=== PATIENT | male | born 1955 | race Caucasian/White ===

== ENCOUNTER 2020-08-17 02:57 | Emergency (ER) | payer MEDICARE, BC ==
[2020-08-17] MEDS ORDERED: Lidocaine 2% Viscous Solution 15 ML Cup ONE (03:38)
[2020-08-17] MEDS ORDERED: Lidocaine 2% Viscous Solution 15 ML Cup PO ONE (03:38)
--- NOTE | 2020-08-17 04:20 | EDM.PDOC ---
ED HPI GENERAL MEDICAL PROBLEM - General Chief Complaint: ENT Problem Stated Complaint: SEVERE NOSE BLEED Time Seen by Provider: 08/17/20 03:32 - History of Present Illness INITIAL COMMENTS - FREE TEXT/NARRATIVE: HISTORY AND PHYSICAL: History of present illness: This is a 65-year-old gentleman with a history significant for coronary artery disease status post bypass surgery last year and is currently on Eliquis and Plavix who presents ER today secondary to nosebleed. Patient reports that he had a nosebleed earlier this morning that resolved on its own however this evening he started having more bleeding that was continuous on unable to stop. Patient denies any recent fevers, shakes, chills, nausea, vomiting, diarrhea, dysuria, frequency, urgency, chest pain, shortness of breath. Patient reports easy bruising to his arms since has been started on the Eliquis and Plavix. Review of systems: As per history of present illness and below otherwise all systems reviewed and negative. Past medical history: As per history of present illness and as reviewed below otherwise noncontributory. Surgical history: As per history of present illness and as reviewed below otherwise noncontributory. Social history: No reported history of drug or alcohol abuse. Family history: As per history of present illness and as reviewed below otherwise noncontributory. Physical exam: This patient was seen and evaluated during the 2019 SARS-CoV-2 novel coronavirus pandemic period. Community viral transmission is ongoing at time of this encounter and the emergency department is operating under pandemic response procedures. Constitutional: Patient is oriented to person, place, and time. Appears well- developed and well-nourished. No distress. HEENT: Moist mucous membranes Head: Normocephalic and atraumatic Eyes: Right eye exhibits no discharge. Left eye exhibits no discharge. No scleral icterus Neck: Normal range of motion. No tracheal deviation present. Cardiovascular: Normal rate and regular rhythm. Pulmonary: Effort normal, no respiratory distress. Abdominal: No distention Musculoskeletal: Normal range of motion Neurologic: Alert and oriented to person, place and time. Skin: Clover, warm and dry. Psychiatric: Normal mood and affect. Behavior is normal. Judgment and thought content normal. Nursing note and vital signs have been reviewed Patient's ER physical exam is significant for bleeding coming out of his left naris. Nasal clamps were placed on the patient for approximate 15 minutes with continuous bleeding. Unable to visualize the source of bleeding so a nasal balloon was inserted. Diagnostics: CBC, CMP, PT PTT Therapeutics: Nasal balloon inserted and inflated with approximately 2 cc of air after injecting the left nares with 3 cc of viscous lidocaine. Assessment and plan: This is a 65-year-old gentleman who presents ER today secondary to persistent epistaxis of his left nares. Despite nasal clamps patient had persistent bleeding and I was unable to visualize the source. A nasal balloon was inserted into his left nares after infiltrating the nare with approximately 3 cc of viscous lidocaine. Patient tolerated the procedure well. Minimal bleeding has been identified out of the left nares from the actual balloon itself. Patient will be discharged home with instructions to return to the ER or see his primary care physician in 3 days for balloon removal. Reassessment at the time of disposition demonstrates that the patient is in no acute distress. The patient has remained stable throughout the entire ED visit and is without objective evidence for acute process requiring urgent intervention or hospitalization. The patient is stable for discharge, counseling is provided as documented above, discussed symptomatic treatment and specific conditions for return. I have spoken with the patient/caregiver and discussed todays findings, in addition to providing specific details for the plan of care. Questions are answered and there is agreement with the plan. Definitive disposition and diagnosis as appropriate pending reevaluation and review of above. - Related Data Allergies Allergy/AdvReac Type Severity Reaction Status Date / Time No Known Allergies Allergy Verified 08/17/20 03:18 Home Meds: Home Meds Apixaban [Eliquis] 5 mg PO 08/17/20 [History] Clopidogrel Bisulfate [Clopidogrel] 75 mg PO 08/17/20 [History] Metoprolol Tartrate 50 mg PO DAILY 08/17/20 [History] atorvaSTATin Calcium [Atorvastatin Calcium] 40 mg PO DAILY 08/17/20 [History] cephALEXin [Keflex] 500 mg PO BID #10 cap 08/17/20 [Rx] Past Medical History HEENT History: Reports: Hard of Hearing Cardiovascular History: Reports: Stents, Other (See Below) Other Cardiovascular History: stents x5 Gastrointestinal History: Reports: GERD - Past Surgical History HEENT Surgical History: Reports: None Cardiovascular Surgical History: Reports: Coronary Artery Bypass Social & Family History - Family History Family Medical History: No Pertinent Family History - Caffeine Use Caffeine Use: Reports: None - Recreational Drug Use Recreational Drug Use: No ED ROS GENERAL - Review of Systems Review Of Systems: See Below ED EXAM, GENERAL - Physical Exam Exam: See Below Course - Vital Signs Last Recorded V/S: Last Vital Signs Temp 97.4 F 08/17/20 03:15 Pulse 89 08/17/20 03:15 Resp 16 08/17/20 03:15 BP 181/106 H 08/17/20 03:15 Pulse Ox 93 L 08/17/20 03:15 - Orders/Labs/Meds Orders: Active Orders 24 hr Category Date Time Status COMPREHENSIVE METABOLIC PN,CMP [CHEM] Stat Lab 08/17/20 04:07 Received INR,PT,PROTHROMBIN TIME [COAG] Stat Lab 08/17/20 04:07 Received PTT,PARTIAL THROMBOPLSTIN TIME [COAG] Stat Lab 08/17/20 04:07 Received Labs: Laboratory Tests 08/17/20 Range/Units 04:07 WBC 6.83 (4.0-11.0) K/uL RBC 4.82 (4.50-5.90) M/uL Hgb 15.8 (13.0-17.0) g/dL Hct 47.6 (38.0-50.0) % MCV 98.8 H (80.0-98.0) fL MCH 32.8 H (27.0-32.0) pg MCHC 33.2 (31.0-37.0) g/dL RDW Std Deviation 47.2 (28.0-62.0) fl RDW Coeff of Mariama 13 (11.0-15.0) % Plt Count 256 (150-400) K/uL MPV 11.20 (7.40-12.00) fL Neut % (Auto) 67.5 (48.0-80.0) % Lymph % (Auto) 20.8 (16.0-40.0) % Chaves % (Auto) 8.1 (0.0-15.0) % Eos % (Auto) 3.2 (0.0-7.0) % Baso % (Auto) 0.4 (0.0-1.5) % Neut # (Auto) 4.6 (1.4-5.7) K/uL Lymph # (Auto) 1.4 (0.6-2.4) K/uL Chaves # (Auto) 0.6 (0.0-0.8) K/uL Eos # (Auto) 0.2 (0.0-0.7) K/uL Baso # (Auto) 0.0 (0.0-0.1) K/uL Nucleated RBC % 0.0 /100WBC Nucleated RBCs # 0 K/uL Meds: Medications Discontinued Medications Generic Name Dose Route Start Last Admin Trade Name Esther PRN Reason Stop Dose Admin Lidocaine HCl Confirm 08/17/20 03:38 Lidocaine 2% Viscous Solution 15 Ml Cup Administered 08/17/20 03:39 Dose 15 ml .ROUTE .STK-MED ONE Departure - Departure Time of Disposition: 04:18 Disposition: Home, Self-Care 01 Condition: Good Clinical Impression: Epistaxis, Anticoagulated - Discharge Information Instructions: Nosebleed, [id number] Referrals: PCP,None [Primary Care Provider] - Additional Instructions: You were seen and evaluated in ER today secondary to nosebleed while on blood thinners and antiplatelet medications for your heart. A nasal balloon has been inserted into your left nostril which seems to have significantly decreased the amount of bleeding. The balloon will need to remain in side your nostril for the next 3 days. You will be started on Keflex 500 mg twice a day for 5 days to prevent the formation of a sinus infection while the balloon is in place. Please make an appointment to see your family doctor or return to the ER in 3 days to have the balloon removed. The following information is given to patients seen in the emergency department who are being discharged to home. This information is to outline your options for follow-up care. We provide all patients seen in our emergency department wit h a follow-up referral. The need for follow-up, as well as the timing and circumstances, are variable depending upon the specifics of your emergency department visit. If you don't have a primary care physician on staff, we will provide you with a referral. We always advise you to contact your personal physician following an emergency department visit to inform them of the circumstance of the visit and for follow-up with them and/or the need for any referrals to a consulting specialist. The emergency department will also refer you to a specialist when appropriate. This referral assures that you have the opportunity for follow-up care with a specialist. All of these measure are taken in an effort to provide you with optimal care, which includes your follow-up. Under all circumstances we always encourage you to contact your private physician who remains a resource for coordinating your care. When calling for follow-up care, please make the office aware that this follow-up is from your recent emergency room visit. If for any reason you are refused follow-up, please contact the [facility] Emergency Department at and asked to speak to the emergency department charge nurse. [facility] - [facility] [address] [place] [id number] [facility] [address] [place] [id number] Sepsis Event Note (ED) - Evaluation Sepsis Screening Result: No Definite Risk - Focused Exam Vital Signs: Vital Signs Temp Pulse Resp BP Pulse Ox 08/17/20 03:15 97.4 F 89 16 181/106 H 93 L - My Orders Last 24 Hours: My Active Orders 08/17/20 04:07 COMPREHENSIVE METABOLIC PN,CMP [CHEM] Stat INR,PT,PROTHROMBIN TIME [COAG] Stat PTT,PARTIAL THROMBOPLSTIN TIME [COAG] Stat - Assessment/Plan Last 24 Hours: My Active Orders 08/17/20 04:07 COMPREHENSIVE METABOLIC PN,CMP [CHEM] Stat INR,PT,PROTHROMBIN TIME [COAG] Stat PTT,PARTIAL THROMBOPLSTIN TIME [COAG] Stat
[2020-08-17 04:41] LABS: BLOOD UREA NITROGEN,BUN 12 mg/dL (7.0-18.0); CARBON DIOXIDE,CO2 24.5 mmol/L (21.0-32.0); CHLORIDE,CL 107 mmol/L (98-107); GLUCOSE RANDOM 127 mg/dL (74-106); POTASSIUM,K 4.1 mmol/L (3.5-5.1); SODIUM,NA 140 mmol/L (136-148)
== END 2020-08-17 04:55 | disposition home or self-care (01) ==
LOC: MW.ED 02:57
DX: R04.0 Epistaxis (principal); I25.10 Atherosclerotic heart disease of native coronary artery without angina pectoris; Z95.1 Presence of aortocoronary bypass graft; Z79.01 Long term (current) use of anticoagulants; Z79.02 Long term (current) use of antithrombotics/antiplatelets; Z79.899 Other long term (current) drug therapy
CPT/HCPCS: 30901; 36415; 80053; 85025; 85610; 85730; 99283; A9270

== ENCOUNTER 2020-08-19 19:32 | Emergency (ER) | payer MEDICARE, BC ==
--- NOTE | 2020-08-19 19:54 | EDM.PDOC ---
ED HPI GENERAL MEDICAL PROBLEM - General Chief Complaint: ENT Problem Stated Complaint: NEEDS NOSE ASSEMBLY REMOVED FROM NOSE Time Seen by Provider: 08/19/20 20:00 Source of Information: Reports: Patient History Limitations: Reports: No Limitations - History of Present Illness INITIAL COMMENTS - FREE TEXT/NARRATIVE: HISTORY AND PHYSICAL: History of present illness: The patient is a 65-year-old male who presents to the ED for removal of his nasal packing. He had a nosebleed on August 17 which required nasal packing. 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 He was taking that for a quintuple bypass September 2019. He has not had any nasal breakthrough bleeding. Patient denies any fever, chills, headache, change in vision, syncope or near syncope. Denies any chest pain, back pain, shortness of breath or cough. Denies any abdominal pain, nausea, vomiting, diarrhea, constipation or dysuria. Has not noted any blood in urine or stool. Patient has been eating and drinking appropriately. Review of systems: As per history of present illness and below otherwise all systems reviewed and negative. Past medical history: As per history of present illness and as reviewed below otherwise noncontributory. Surgical history: As per history of present illness and as reviewed below otherwise noncontributory. Social history: See social history for further information Family history: As per history of present illness and as reviewed below otherwise noncontributory. Physical exam: General: Well developed and well nourished. Alert and orientated x 3. Nontoxic in appearance and in no acute distress. Vital signs are stable and have been reviewed by me. Nursing notes were reviewed. HEENT: Atraumatic, normocephalic, pupils equal and reactive bilaterally, negative for conjunctival pallor or scleral icterus, mucous membranes moist, TMs normal bilaterally, throat clear, neck supple, nontender, trachea midline. Right nares edematous with scant amount of bright red blood. No site noted for bleeding. No drooling or trismus noted. No meningeal signs. No hot potato voice noted. Lungs: Clear to auscultation bilaterally. No wheezes, rales, or rhonchi. Chest nontender. Normal work of breathing, no accessory muscles used. Heart: S1S2, regular rate and rhythm without overt murmur, gallops, or rubs. No JVD. No peripheral edema Abdomen: Soft, nondistended, nontender. Normoactive bowel sounds. Negative for masses or costovertebral tenderness. Skin: Intact, warm, dry. No lesions or rashes noted. Hematologic: No petechiae or purpra. Mucosa appropriate color and normal nail bed color and refill. Extremities: Atraumatic, moves all extremities per self without difficulty or deficits, negative for cords or calf pain. Neurovascular unremarkable. Neuro: Awake, alert, oriented. Cranial nerves II through XII unremarkable. Cerebellum unremarkable. Motor and sensory unremarkable throughout. Exam nonfocal. Psychiatric: Mood and affect are appropriate. Normal thought process. Answering questions appropriately. Notes: *This patient was seen and evaluated during the 2019 SARS-CoV-2 novel coronavirus pandemic period. Community viral transmission is ongoing at time of this encounter and the emergency department is operating under pandemic response procedures. Upon removing the packing in the left naris his nasal bleeding resumed. A nose clamp was applied for pressure. Nose clamp removed and patient has scant amount of bleeding, but appears to be slowing down. Will have the patient wait to see if the bleeding stops. No further bleeding noted at this time. The patient is requesting to be discharged. He was educated on when to return to the ED if his epistaxis returns. I have talked with the patient about today's findings, in addition to providing specific details for plan of care. Reassessment at the time of disposition demonstrates that the patient is in no acute distress. The patient is stable for discharge, counseling was provided and we discussed in great detail signs and symptoms that would prompt them to return to the Emergency Department. Medication, follow up and supportive care measures were reviewed and discussed. Voices understanding and is agreeable to plan of care. Denies any further questions or concerns at this time. Impression: Epistaxis Plan: 1. You were evaluated today on an emergent basis. Your nose bleed packing was removed and you started to have a nose bleed. This was resolved with the application of nasal clamps. Be sure to follow up with your medical provider regarding your Plavix and Eliquis. Return to the emergency department if the nosebleed returns. 2. You can alternate Tylenol and ibuprofen as needed for pain and fever management. 3. We encourage you to follow up with your primary care provider and/or recommended specialist in the next few days for re-evaluation and further care/management. 4. If your symptoms should worsen, new symptoms develop or any of the signs and symptoms we discussed should arise please return to the emergency room or call 911 (if needed). Definitive disposition and diagnosis as appropriate pending reevaluation and review of above. - Related Data Allergies Allergy/AdvReac Type Severity Reaction Status Date / Time No Known Allergies Allergy Verified 08/19/20 19:56 Home Meds: Home Meds Metoprolol Tartrate 50 mg PO DAILY 08/17/20 [History] atorvaSTATin Calcium [Atorvastatin Calcium] 40 mg PO DAILY 08/17/20 [History] cephALEXin [Keflex] 500 mg PO BID #10 cap 08/17/20 [Rx] Past Medical History HEENT History: Reports: Hard of Hearing Cardiovascular History: Reports: Stents, Other (See Below) Other Cardiovascular History: stents x5 Gastrointestinal History: Reports: GERD - Past Surgical History HEENT Surgical History: Reports: None Cardiovascular Surgical History: Reports: Coronary Artery Bypass Social & Family History - Family History Family Medical History: No Pertinent Family History - Caffeine Use Caffeine Use: Reports: None ED ROS ENT - Review of Systems Review Of Systems: Comprehensive ROS is negative, except as noted in HPI. ED EXAM, ENT - Physical Exam Exam: See Below (See dictation) Course - Vital Signs Last Recorded V/S: Last Vital Signs Temp 97.8 F 08/19/20 19:59 Pulse 82 08/19/20 19:59 Resp 18 08/19/20 19:59 BP 142/89 H 08/19/20 19:59 Pulse Ox 95 08/19/20 19:59 Departure - Departure Time of Disposition: 20:40 Disposition: Home, Self-Care 01 Condition: Good Clinical Impression: Epistaxis - Discharge Information *PRESCRIPTION DRUG MONITORING PROGRAM REVIEWED*: Not Applicable *COPY OF PRESCRIPTION DRUG MONITORING REPORT IN PATIENT BRIAN: Not Applicable Instructions: Nosebleed, [id number] Referrals: PCP,None [Primary Care Provider] - Forms: ED Department Discharge Additional Instructions: The following information is given to patients seen in the emergency department who are being discharged to home. This information is to outline your options for follow-up care. We provide all patients seen in our emergency department with a follow-up referral. The need for follow-up, as well as the timing and circumstances, are variable depending upon the specifics of your emergency department visit. If you don't have a primary care physician on staff, we will provide you with a referral. We always advise you to contact your personal physician following an emergency department visit to inform them of the circumstance of the visit and for follow-up with them and/or the need for any referrals to a consulting specialist. The emergency department will also refer you to a specialist when appropriate. This referral assures that you have the opportunity for follow-up care with a specialist. All of these measure are taken in an effort to provide you with optimal care, which includes your follow-up. Under all circumstances we always encourage you to contact your private physician who remains a resource for coordinating your care. When calling for follow-up care, please make the office aware that this follow-up is from your recent emergency room visit. If for any reason you are refused follow-up, please contact the [facility] Emergency Department at and asked to speak to the emergency department charge nurse. [facility] - [facility] Care [address] [place] [address] [id number] [address] [id number] Plan: 1. You were evaluated today on an emergent basis. Your nose bleed packing was removed and you started to have a nose bleed. This was resolved with the adam lication of nasal clamps. Be sure to follow up with your medical provider regarding your Plavix and Eliquis. Return to the emergency department if the nosebleed returns. 2. You can alternate Tylenol and ibuprofen as needed for pain and fever management. 3. We encourage you to follow up with your primary care provider and/or recommended specialist in the next few days for re-evaluation and further care/management. 4. If your symptoms should worsen, new symptoms develop or any of the signs and symptoms we discussed should arise please return to the emergency room or call 911 (if needed). Sepsis Event Note (ED) - Focused Exam Vital Signs: Vital Signs Temp Pulse Resp BP Pulse Ox 08/19/20 19:59 97.8 F 82 18 142/89 H 95
== END 2020-08-19 21:00 | disposition home or self-care (01) ==
LOC: MW.ED 19:32
DX: R04.0 Epistaxis (principal); Z95.1 Presence of aortocoronary bypass graft; Z79.899 Other long term (current) drug therapy
CPT/HCPCS: 99282

== ENCOUNTER 2023-09-10 01:19 | Emergency (ER) | payer MEDICARE, BC ==
[2023-09-10 01:36] LABS: BASOPHILS ABSOLUTE AUTO 0.04 K/uL (0.00-0.20); BASOPHILS PERCENT AUTO 0.4 % (0.0-1.0); EOSINOPHILS ABSOLUTE AUTO 0.03 K/uL (0.00-0.45); EOSINOPHILS PERCENT AUTO 0.3 % (0.0-6.0); HEMATOCRIT 51.3 % (42.0-52.0); HEMOGLOBIN 17.8 g/dL (14.0-18.0); IMMATURE GRAN ABSOLUTE AUTO 0.03 K/uL (0.00-0.05); IMMATURE GRAN PERCENT AUTO 0.3 % (0.0-0.4); LYMPHOCYTES ABSOLUTE AUTO 1.22 K/uL (1.00-4.80); MEAN CORPUSCULAR HEMOGLOBIN 32.5 pg (28.0-32.0); MEAN CORPUSCULAR HGB CONC 34.7 g/dL (32.0-36.0); MEAN CORPUSCULAR VOLUME 93.6 fL (83.0-99.0); MEAN PLATELET VOLUME 11.9 fL (9.4-12.4); MONOCYTES ABSOLUTE AUTO 0.67 K/uL (0.00-0.80); MONOCYTES PERCENT AUTO 6.6 % (0.0-8.0); NEUTROPHILS PERCENT AUTO 80.4 % (41.0-71.0); PLATELET COUNT,PLT 296 K/uL (150-400); RED BLOOD CELL COUNT 5.48 M/uL (4.52-5.90); WHITE BLOOD CELL COUNT,WBC 10.19 K/uL (3.9-11.3)
[2023-09-10 01:37] LABS: BASE EXCESS VENOUS -3.6 (-2.0-3.0); BICARBONATE,VENOUS 23 mEQ/mL (22-28); PCO2 VENOUS 46 mmHG (41-51); PH,VENOUS 7.31 (7.31-7.41)
[2023-09-10] MEDS: Sodium Chloride 0.9% 2.5 ML Syringe FLUSH PRN (01:37)
[2023-09-10] MEDS: Sodium Chloride 0.9% 1,000 ML IV ONE ×2 (01:37→02:44)
[2023-09-10 01:38] LABS: PO2 VENOUS < 30 mmHG (80-100)
[2023-09-10] MEDS: Sodium Chloride 0.9% 10 ML Syringe FLUSH PRN (01:38)
[2023-09-10] MEDS: Ondansetron 4 MG/2 ML SDV IVPUSH ONE (01:42)
[2023-09-10 01:50] LABS: INR 1.01 (0.86-1.11); PTT,PARTIAL THROMBOPLSTIN TIME 25.3 SEC (23.9-30.7)
[2023-09-10 01:52] LABS: D-DIMER QUANTITATIVE < 0.19 mg/L FEU (0.00-0.50)
[2023-09-10 02:08] LABS: APPEARANCE,URINE CLEAR; BILIRUBIN,URINE NEGATIVE (NEGATIVE); COLOR,URINE YELLOW; GLUCOSE,URINE >=1000 mg/dL (NEGATIVE); KETONES,URINE >=80 mg/dL (NEGATIVE); LEUKOCYTE ESTERASE,URINE NEGATIVE (NEGATIVE); NITRITE,URINE NEGATIVE (NEGATIVE); OCCULT BLOOD,URINE NEGATIVE (NEGATIVE); PH,URINE 5.5 (5.0-8.0); PROTEIN,URINE NEGATIVE (NEGATIVE); UROBILINOGEN,URINE 0.2 EU/dL (<2.0)
[2023-09-10 02:09] LABS: A/G RATIO 1.2 (0.9-1.6); CALCIUM 10.2 mg/dL (8.5-10.1); CARBON DIOXIDE,CO2 22.2 mmol/L (21.0-32.0); CREATININE 1.4 mg/dL (0.8-1.3); EST CRCL DRUG DOSING (CG) 48.86 mL/min; POTASSIUM,K 4.3 mmol/L (3.5-5.1); PROTEIN TOTAL,TP 7.4 g/dL (6.4-8.2)
[2023-09-10 02:12] LABS: HEMOGLOBIN A1C 13.5 %
[2023-09-10] MEDS ORDERED: Sodium Chloride 0.9% 1,000 ML IV SCH (02:30)
[2023-09-10] MEDS: Insulin Regular in 0.9 % NACL 100 ML IV SCH (02:43)
[2023-09-10] MEDS: Iopamidol 755 MG/ML 500 ML Multipack Bottle IVPUSH ONE (03:18)
[2023-09-10] MEDS: Aspirin 81 MG Tab.Chew PO ONE (06:23)
== END 2023-09-10 08:40 ==
LOC: MW.ED 01:19
DX: I21.4 Non-ST elevation (NSTEMI) myocardial infarction (principal); E11.10 Type 2 diabetes mellitus with ketoacidosis without coma; I48.91 Unspecified atrial fibrillation; I25.10 Atherosclerotic heart disease of native coronary artery without angina pectoris; Z95.5 Presence of coronary angioplasty implant and graft; Z79.01 Long term (current) use of anticoagulants; Z79.899 Other long term (current) drug therapy
CPT/HCPCS: 36415; 71045; 74177; 80053; 81003; 82009; 82803; 82947; 83036; 83690; 83880; 84484; 85025; 85379; 85610; 85730; 93005; 96360; 96361; 99291; A9270; J1815; J3490; J7030; Q9967; 93010